=== PATIENT | male | born 1980 | race Caucasian/White ===

== ENCOUNTER 2017-01-21 17:57 | Emergency (ER) | payer OTHER ==
[~2017-01-21] VITALS: Ht 188 cm; Wt 86.2 kg
[~2017-01-21 17:57] MED LIST: DOCU-24 PO; FENT1PAT76 TD; FERR-29 PO; HYDR-3014 PO
--- NOTE | 2017-01-21 18:08 | NUR ---
ARRIVAL: PT TAKEN TO 3 BY EMS. ON O2 AT 3LPM. PT IS PALE. ALERT AND COOP. MOD RESP DISTRESS. CHEST TUBES LOCATED IN THE BACK BOTH ARE DRAINING LARGE AMT PURULUNT LEMONS SECRETIONS. PT PLACED ON MONITOR AND TRIAGE DONE.
--- NOTE | 2017-01-21 18:12 | ER.PDOC ---
General Chief Complaint: Requesting Medical Care Stated Complaint: SOB Time seen by MD: 18:08 Source: patient Exam Limitations: no limitations History of Present Illness Initial Comments Shortness of breath and cough for past few days worse today. Patient has lung cancer and currently has a chest tube which has been there for past 3 Months. Severity: moderate Associated Symptoms: chest pain, cough Prior symptoms/Treatment: Similar symptoms previous Allergies: Coded Allergies: No Known Allergies (Unverified , 10/26/16) Home Meds Reported Medications Docusate Sodium (Colace)100 Mg [id number] Mg PO BID 10/26/16 Ferrous Sulfate 325 Mg [id number] Mg PO BID 10/26/16 Fentanyl 50 Mcg/Hr (Duragesic 50 Mcg/Hr)1 Each Patch.td721 Each TD Q72H PAIN #5 PATCH 10/26/16 Hydrocodone Bit/Acetaminophen ([place] 10-325)1 Each Tablet1 Each PO Q4H PRN PAIN #30 TAB 10/26/16 Past Medical History Surgical History: appendectomy Review of Systems Constitutional: no symptoms reported Respiratory: see HPI Cardiovascular: see HPI Gastrointestinal: no symptoms reported Genitourinary: no symptoms reported Musculoskeletal: no symptoms reported Skin: no symptoms reported All Other Systems: Reviewed and Negative Physical Exam General Appearance: No Apparent Distress, WD/WN Neck: Non-Tender, Full Range of Motion, Supple, Normal Inspection Respiratory: chest non-tender, lungs clear (left), other (chest tube posteriorly draining brownish liquid and absent breath sounds right half of lungs) Cardiovascular: Normal Peripheral Pulses, Regular Rate, Rhythm, No Edema, No Gallop, No JVD, No Murmur, Tachycardia Gastrointestinal: Normal Bowel Sounds, No Organomegaly, No Pulsatile Mass, Non Tender, Soft Extremities: Normal Range of Motion, Non-Tender, Normal Inspection, No Pedal Edema, No Calf Tenderness, Normal Capillary Refill Neurologic/Psychiatric: crank hand II-XII NML as Tested, No Motor/Sensory Deficits, Alert, Normal Mood/Affect, Oriented x 3 Results/Orders Results/Orders Laboratory Tests Test 01/21/17 18:36 01/21/17 18:40 White Blood Count 16.510^3/uL (4.5-11.0) Red Blood Count 4.0410^6/uL (4.50-5.90) Hemoglobin 9.1g/dL (13.9-16.3) Hematocrit 31.3% (37.0-53.0) Mean Corpuscular Volume 77.5fL (78-100) Mean Corpuscular Hemoglobin 22.5pg (26-34) Mean Corpuscular Hemoglobin Concent 29.1g/dL (33-37) Red Cell Distribution Width 15.9% (11.5-14.5) Platelet Count 38776^3/uL (150-400) Mean Platelet Volume 8.2fL (7.8-11.0) Neutrophils (%) (Auto) 77.0% (41.0-85.0) Lymphocytes (%) (Auto) 14.4% (24.0-44.0) Monocytes (%) (Auto) 6.9% (5.0-12.0) Neutrophils # (Auto) 12.710^3/uL (1.8-7.7) Lymphocytes # (Auto) 2.410^3/uL (1.0-4.8) Monocytes # (Auto) 1.110^3/uL (0.3-0.8) Absolute Immature Granulocyte (auto 0.0610^3 u/L (0-2) Eosinophils % 1.0% (0.0-5.0) Basophils % 0.3% (0.0-0.2) Basophils # 0.110^3/uL (0.0-0.1) Eosinophil Count 0.210^3/uL (0.0-0.2) Percent Immature Gran (Cell Imm) 0.40% (0.00-0.50) Lactic Acid (Blood Gas) 1.5MMOL/L (0.5-1.0) EKG/XRAY/CT/US EKG Comments: Sinus tachycardia XRAY: chest (Opacified right hemithorax) Departure Time of Disposition: 18:55 Disposition: 02 XFER SHT-TRM HOSP Impression: Primary Impression: Sepsis Additional Impressions: Pleural effusion on right Lung cancer Condition: Stable Referrals: PCP,UNKNOWN (PCP) PRIMARY CARE PROVIDER Comments Transfer to [facility] ED for Dr. Elaine Critical Care Note Total Time (mins): 70 Problem Qualifiers Primary Impression: Sepsis Sepsis type: sepsis due to unspecified organism Qualified Code: A41.9 - Sepsis, unspecified organism Additional Impressions: Lung cancer Laterality: right Lung location: unspecified part of lung Qualified Code: C34.91 - Malignant neoplasm of unspecified part of right bronchus or lung MAGGIE FRAUSTO MD Jan 21, 2017 18:12
[2017-01-21] MEDS ORDERED: NS 1000ML 1,000 ML ONE ×2 (18:13)
--- NOTE | 2017-01-21 18:15 | NUR ---
IV NS STARTED TO LEFT HAND FREE FLOWING.
--- NOTE | 2017-01-21 18:28 | NUR ---
[facility] DR FRAUSTO SPEAKING WITH [facility]
--- NOTE | 2017-01-21 18:32 | DIREP ---
PROCEDURE:CHEST 1 VIEW COMPARISON:[facility], CT, CT CHEST W/CONTRAST, 10/26/2016, 09:17 PM. INDICATIONS:SOB FINDINGS: LUNGS/PLEURA:Right hemithorax is completely opacified with 2 pigtail drainage catheters present. Left lung is hyperexpanded but clear. VASCULATURE:Normal. Unremarkable pulmonary vasculature. CARDIAC:Cannot evaluate cardiac size is due to opacified right hemithorax. MEDIASTINUM:Be sternal structures are shifted to the right. BONES:Normal. No fracture or visible bony lesion. OTHER:EKG leads overlie the chest. CONCLUSION:Opacified right hemithorax which is likely secondary to a combination of atelectasis/infiltrate and pleural effusion. Left lung is clear. Dictated by: Oscar Saenz M.D. on 01/21/2017 at 06:28 PM
--- NOTE | 2017-01-21 18:34 | NUR ---
dr sarah ALFORD ACCEPTS AT [facility]
--- NOTE | 2017-01-21 18:39 | NUR ---
DR BRADEN FELICIANO CALLED FOR ADMIN PERMISSION TO TRANSFER
[2017-01-21] MEDS ORDERED: MORPHINE SULFATE IV STA (18:46)
[2017-01-21 18:47] LABS: BASOPHIL # 0.1 10^3/uL (0.0-0.1); BASOPHIL % 0.3 % (0.0-0.2); EOSINOPHIL # 0.2 10^3/uL (0.0-0.2); HEMATOCRIT 31.3 % (37.0-53.0); HEMOGLOBIN 9.1 g/dL (13.9-16.3); LYMPHOCYTES # 2.4 10^3/uL (1.0-4.8); LYMPHOCYTES % 14.4 % (24.0-44.0); MEAN CELL HGB 22.5 pg (26-34); MEAN CELL HGB CONCENTRATION 29.1 g/dL (33-37); MEAN CORP VOLUME 77.5 fL (78-100); MEAN PLATELET VOLUME 8.2 fL (7.8-11.0); MONOCYTES # 1.1 10^3/uL (0.3-0.8); MONOCYTES % 6.9 % (5.0-12.0); NEUTROPHIL # 12.7 10^3/uL (1.8-7.7); RED BLOOD CELL 4.04 10^6/uL (4.50-5.90); RED CELL DISTRIBUTION WIDTH 15.9 % (11.5-14.5); WHITE BLOOD CELL 16.5 10^3/uL (4.5-11.0)
[2017-01-21] MEDS ORDERED: MORPHINE SULFATE ONE ×2 (18:47)
[2017-01-21] MEDS ORDERED: LEVAQUIN 150 ML IV ONE ×3 (18:52→19:00)
--- NOTE | 2017-01-21 18:55 | NUR ---
EMS CALLED EMS FOR TRANSFER TO [facility]
--- NOTE | 2017-01-21 19:00 | NUR ---
BLOOD CULTURE BLOOD CULTURES DRAWN X1 BEFORE LEVAQUIN STARTED, JUSTYNA IN LAB STATED THAT I COULD START THE ANTIBIOTIC BEFORE 2ND SET DRAWN BECAUSE OF THE BOTTLES THEY HAVE.
[2017-01-21 19:12] LABS: ALANINE AMINOTRANSFERASE 16 U/L (12-78); ALKALINE PHOSPHATASE 458 U/L (50-136); ANION GAP 12.1; ASPARTATE AMINO TRANSFERASE 16 U/L (0-35); CALCIUM 9.4 mg/dL (8.4-10.5); CARBON DIOXIDE 29.2 mmol/L (20.0-32); CREATININE SERUM 0.91 mg/dL (0.59-1.40); GLUCOSE 124 mg/dL (70-110)
--- NOTE | 2017-01-21 19:13 | NUR ---
BLOOD CULTURE LAB CALLED AND INFORMED UNABLE TO COLLECT 2ND SET OF CULTURES.
--- NOTE | 2017-01-21 19:14 | NUR ---
[facility] HERE FOR TRANSFER , REPORT GIVEN TO SHAYNA,EMT-P
[2017-01-21 19:15] LABS: CREATINE KINASE MB 0.1 ng/mL (0.5-3.6)
--- NOTE | 2017-01-21 19:24 | NUR ---
REPORT REPORT GIVEN TO SOCORRO COSTA AT [facility]
[2017-01-21 19:41] VITALS: BP 130/64
== END 2017-01-21 19:24 | disposition short-term general hospital (02) ==
LOC: ER 17:57 → EDBD 17:57 → ER 19:24
DX: A41.9 Sepsis, unspecified organism (principal); C34.91 Malignant neoplasm of unspecified part of right bronchus or lung; J90 Pleural effusion, not elsewhere classified; Z79.899 Other long term (current) drug therapy
CPT/HCPCS: 36415; 71010; 80053; 82550; 83605; 83880; 84484; 85025; 85379; 87040; 93005; 96365; 96375; 99291; J1956; J2270; J7030; 85007